=== PATIENT | male | born 1990 | race African-American/Black ===

== ENCOUNTER 2020-10-28 01:46 | Emergency (ER) | payer SELFPAY ==
[2020-10-28 02:16] VITALS: TEMP 97.4; BMI 28.7
[2020-10-28] MEDS ORDERED: ACETAMINOPHEN 325 MG TABLET (FP) PO ONE (02:38)
[2020-10-28] MEDS ORDERED: ACETAMINOPHEN 325 MG TABLET (FP) ONE (03:02)
[2020-10-28 03:55] VITALS: BP 142/86; PULSE 94
== END 2020-10-28 03:15 | disposition home or self-care (01) ==
LOC: JER 01:46
DX: R07.9 Chest pain, unspecified (principal)
CPT/HCPCS: 71046-TC-FY; 93005; 93010; 99284-25

== ENCOUNTER 2021-05-06 15:28 | Emergency (ER) | payer OTHER ==
[2021-05-06 15:37] VITALS: BMI 31.1
[2021-05-06] MEDS ORDERED: ASPIRIN 81 MG CHEWABLE TABLETS PO ONE (16:21)
[2021-05-06] MEDS ORDERED: ASPIRIN 81 MG CHEWABLE TABLETS ONE (16:33)
[2021-05-06 16:48] LABS: BASO % 0.5 % (0-2.0); EOS % 3.1 % (0-4.5); HEMATOCRIT 48.6 % (35.4-49); HEMOGLOBIN 15.9 GM/dL (11.7-16.9); LYMPH % 34.4 % (8-40); MCH 28.8 pg (25.7-33.7); MCHC 32.8 g/dl (32.0-35.9); MEAN CELL VOLUME 87.8 fl (80-96); MEAN PLT VOLUME 7.9 fl (7.5-11.1); PLATELET COUNT 217 10^3/uL (134-434); RBC 5.53 M/mm3 (4.00-5.60)
[2021-05-06 17:07] LABS: CHLORIDE 100 mmol/L (98-107); SODIUM 136 mmol/L (136-145)
[2021-05-06 17:08] LABS: CALCIUM 9.7 mg/dL (8.5-10.1)
[2021-05-06 17:09] LABS: ALBUMIN 4.5 g/dl (3.4-5.0); ANION GAP 7 MMOL/L (8-16); BLOOD UREA NITROGEN 7.8 mg/dL (7-18); CO2 29 mmol/L (21-32); GLUCOSE,RANDOM 91 mg/dL (74-106); LIPASE 44 U/L (73-393); MAGNESIUM 2.3 mg/dL (1.8-2.4)
[2021-05-06 17:12] LABS: SGOT/AST 39 U/L (15-37); SGPT/ALT 66 U/L (13-61)
[2021-05-06 17:13] LABS: BILIRUBIN,TOTAL 1.1 mg/dL (0.2-1)
[2021-05-06 17:14] LABS: TOT PROT 9.3 g/dl (6.4-8.2)
[2021-05-06 17:15] LABS: ALK PHOS 82 U/L (45-117)
[2021-05-06 18:34] VITALS: BP 133/77; PULSE 78; TEMP 98.6
== END 2021-05-06 18:34 | disposition home or self-care (01) ==
LOC: JER 15:28
DX: R07.89 Other chest pain (principal)
CPT/HCPCS: 36415; 71046-TC-FY; 80053; 82550; 82553; 83690; 83735; 84484; 85025; 93005; 93010; 99285-25; C9803; U0003; U0005

== ENCOUNTER 2024-07-29 19:09 | Emergency (ER) | payer SELFPAY ==
[2024-07-29 19:21] VITALS: BP 165/99; PULSE 92; RESP 20; TEMP 98; BMI 29.1
== END 2024-07-29 20:03 | disposition home or self-care (01) ==
LOC: JER 19:09
DX: F10.20 Alcohol dependence, uncomplicated (principal); Y90.9 Presence of alcohol in blood, level not specified; F41.9 Anxiety disorder, unspecified
CPT/HCPCS: 99282-25

== ENCOUNTER 2024-07-29 21:22 | Inpatient (IN) | payer SELFPAY ==
[2024-07-29 22:24] VITALS: BMI 29.1
[2024-07-30] MEDS ORDERED: ACETAMINOPHEN 325 MG TABLET (FP) PO PRN (00:23)
[2024-07-30] MEDS ORDERED: IBUPROFEN 600 MG TABLET (FP) PO PRN (00:23)
[2024-07-30] MEDS ORDERED: IBUPROFEN 400 MG TABLET (FP) PO PRN (00:23)
[2024-07-30] MEDS ORDERED: DICYCLOMINE HCL 10 MG CAPSULE PO PRN (00:23)
[2024-07-30] MEDS ORDERED: NALOXONE (NARCAN) HCL 4 MG/0.1 ML SPRAY NS PRN (00:23)
[2024-07-30] MEDS ORDERED: MAGNESIUM HYDROX 2400MG/30ML ORAL SUSPENSION 30 ML CUP PO PRN (00:23)
[2024-07-30] MEDS ORDERED: guaiFENesin 600 MG TABLET.ER (FP) PO PRN (00:23)
[2024-07-30] MEDS ORDERED: MAG HYDROX/AL HYDROX/SIMETH 30 ML UNIT-DOSE CUP PO PRN (00:23)
[2024-07-30] MEDS ORDERED: BISMUTH SUBSALICYLATE 524 MG/30 ML PO PRN (00:23)
[2024-07-30] MEDS ORDERED: POLYETHYLENE GLYCOL (HEALTHYLAX) 3350 17 GM PACKET PO PRN (00:23)
[2024-07-30] MEDS ORDERED: LOPERAMIDE HCL 2 MG CAPSULE PO PRN (00:23)
[2024-07-30] MEDS ORDERED: BENZONATATE 200 MG CAPSULE PO PRN (00:23)
[2024-07-30] MEDS ORDERED: ONDANSETRON *ODT* 4 MG TABLET SL PRN (00:23)
[2024-07-30] MEDS ORDERED: NALOXONE HCL 0.4 MG/ML VIAL IM PRN (00:23)
[2024-07-30] MEDS ORDERED: BENZOCAINE/MENTHOL (CHLORASEPTIC ) LOZENGE MM PRN (00:23)
[2024-07-30] MEDS: chlordiazePOXIDE HCL 25 MG CAPSULE PO PRN (01:14)
[2024-07-30] MEDS: METHOCARBAMOL 500 MG TABLET PO PRN (01:14)
[2024-07-30] MEDS: hydrOXYzine PAMOATE 25 MG CAPSULE (FP) PO PRN (01:15)
[2024-07-30] MEDS ORDERED: chlordiazePOXIDE HCL 25 MG CAPSULE ONE ×2 (05:50→10:43)
[2024-07-30] MEDS: chlordiazePOXIDE HCL 25 MG CAPSULE PO SCH (05:57)
[2024-07-30] MEDS ORDERED: ALBUTEROL SO4 HFA INHALER IH PRN (07:36)
[2024-07-30 08:37] VITALS: RESP 16
[2024-07-30] MEDS ORDERED: PRENATAL VITAMINS W/ FOLIC ACID TABLET (FP) PO ONE (10:43)
[2024-07-30] MEDS: PRENATAL VITAMINS W/ FOLIC ACID TABLET (FP) PO SCH (10:44)
[2024-07-30] MEDS: MELATONIN 5 MG TABLETS PO SCH (22:26)
[2024-07-30] MEDS: ATORVASTATIN CA 10 MG TABLET (FP) PO SCH (22:26)
[2024-07-30] MEDS: THIAMINE 100 MG TABLET PO SCH (22:26)
[2024-07-31] MEDS: chlordiazePOXIDE HCL 25 MG CAPSULE PO SCH (06:00)
[2024-07-31 09:28] VITALS: BP 124/87; PULSE 93; TEMP 98.1
[2024-08-01] MEDS ORDERED: chlordiazePOXIDE HCL 10 MG CAPSULE PO PRN
[2024-08-01] MEDS ORDERED: chlordiazePOXIDE HCL 10 MG CAPSULE PO SCH (05:00)
[2024-08-02] MEDS ORDERED: chlordiazePOXIDE HCL 10 MG CAPSULE PO SCH (05:00)
[2024-08-03] MEDS ORDERED: chlordiazePOXIDE HCL 10 MG CAPSULE PO ONE (05:00)
== END 2024-07-31 09:45 | disposition home or self-care (01) | DRG 775 ==
LOC: YASAS 21:22 → Y6N 07-30 11:12
PROVIDERS: ADMIT Surgery; ATTEND Surgery
PROC: HZ2ZZZZ Detoxification Services for Substance Abuse Treatment (ICD-10-PCS; principal; 2024-07-30)
DX: F10.230 Alcohol dependence with withdrawal, uncomplicated (principal); E78.5 Hyperlipidemia, unspecified; J45.909 Unspecified asthma, uncomplicated; Z87.891 Personal history of nicotine dependence
CPT/HCPCS: 36415; 80305; 80307; 93005; 93010